=== PATIENT | female | born 1960 | race Hispanic/Latino ===

== ENCOUNTER 2017-08-29 10:51 | Emergency (ER) | payer OTHER ==
--- NOTE | 2017-08-29 12:42 | XRay Report ---
Chest 2 views: History: Cough and congestion. Findings: Normal cardiomediastinal silhouette the trachea is midline. No consolidation, pneumothorax or pleural effusion. Impression: No acute cardiopulmonary findings.
--- NOTE | 2017-08-29 13:05 | Emergency Department Report ---
- General Chief Complaint: Upper Respiratory Infection Stated Complaint: COUGH/BODY ACHE/VIDAL Source: patient Mode of arrival: Ambulatory Limitations: No Limitations - History of Present Illness Initial Comments: 57-year-old female comes in for cough with body aches for 2 days. She reports that the TheraFlu was not helping. She does have a past medical history of bronchitis and staph infections. Patient denies any nausea vomiting she does complain of rib pain with cough. As well as back pain with cough. MD Complaint: fever, cough, rhinorrhea, nasal congestion -: days(s) (2) Severity: moderate, severe Severity scale (0 -10): 10 Quality: sharp Consistency: intermittent (with the cough) Improves With: nothing Worsens With: other (cough) Associated Symptoms: rhinorrhea, cough, chest pain Treatments Prior to Arrival: "cold medicine" - Related Data Previous Rx's Medication Instructions Recorded Last Taken Type ALBUTEROL Inhaler [ProAir HFA 2 puff IH QID PRN 30 Days #1 08/29/17 Unknown Rx Inhaler] inhalation Benzonatate [Tessalon Perle] 100 mg PO TID #30 capsule 08/29/17 Unknown Rx Naproxen 500 mg PO BID #20 tablet 08/29/17 Unknown Rx Sulfamethoxazole/Trimethoprim 1 each PO BID 10 Days #20 tablet 08/29/17 Unknown Rx [Bactrim DS TAB] Allergies Allergy/AdvReac Type Severity Reaction Status Date / Time Penicillins Allergy Swelling Verified 08/29/17 11:05 vancomycin Allergy Rash Verified 08/29/17 11:05 ED Review of Systems ROS: Stated complaint: COUGH/BODY ACHE/VIDAL Other details as noted in HPI Constitutional: chills, fever, other (body aches) Eyes: denies: eye pain, eye discharge, vision change ENT: congestion (nasal congestion) Respiratory: cough Cardiovascular: chest pain (with cough) Endocrine: no symptoms reported Gastrointestinal: denies: abdominal pain, nausea, diarrhea Genitourinary: denies: urgency, dysuria, discharge Musculoskeletal: back pain (with cough) Skin: denies: rash, lesions Neurological: headache (with cough) Psychiatric: denies: anxiety, depression Hematological/Lymphatic: denies: easy bleeding, easy bruising ED Past Medical Hx - Past Medical History Previous Medical History?: Yes Additional medical history: Bronchitis, Staph infection - Surgical History Past Surgical History?: Yes Hx Cholecystectomy: Yes Hx Breast Surgery: Yes (Right breat biopsy) Additional Surgical History: Back surgery x 3, Tubaligation - Social History Smoking Status: Current Every Day Smoker Substance Use Type: Alcohol, Non Opiate Pain, Other - Medications Home Medications: Home Medications Medication Instructions Recorded Confirmed Last Taken Type ALBUTEROL Inhaler [ProAir HFA 2 puff IH QID PRN 30 Days #1 08/29/17 Unknown Rx Inhaler] inhalation Benzonatate [Tessalon Perle] 100 mg PO TID #30 capsule 08/29/17 Unknown Rx Naproxen 500 mg PO BID #20 tablet 08/29/17 Unknown Rx Sulfamethoxazole/Trimethoprim 1 each PO BID 10 Days #20 tablet 08/29/17 Unknown Rx [Bactrim DS TAB] ED Physical Exam - General Limitations: No Limitations General appearance: alert, in no apparent distress - Head Head exam: Present: atraumatic, normocephalic - Eye Eye exam: Present: normal appearance - ENT ENT exam: Present: mucous membranes moist - Neck Neck exam: Present: normal inspection, full ROM. Absent: tenderness, lymphadenopathy - Respiratory Respiratory exam: Present: normal lung sounds bilaterally, other (actively coughing). Absent: respiratory distress - Cardiovascular Cardiovascular Exam: Present: regular rate, normal rhythm. Absent: systolic murmur, diastolic murmur, rubs, gallop - GI/Abdominal GI/Abdominal exam: Present: soft, normal bowel sounds - Neurological Exam Neurological exam: Present: alert, oriented X3 - Psychiatric Psychiatric exam: Present: normal affect, normal mood - Skin Skin exam: Present: warm, dry, intact, normal color. Absent: rash ED Course Vital Signs 08/29/17 11:05 Temperature 99.5 F Pulse Rate 102 H Respiratory 20 Rate Blood Pressure 130/74 O2 Sat by Pulse 95 Oximetry ED Medical Decision Making - Radiology Data Radiology results: report reviewed, image reviewed Findings: Normal cardiomediastinal silhouette the trachea is midline. No consolidation, pneumothorax or pleural effusion. Impression: No acute cardiopulmonary findings. Transcribed By: PTP Dictated By: CESAR LANDRY MD Electronically Authenticated By: CESAR LANDRY MD Signed Date/Time: 08/29/17 1226 - Medical Decision Making Patient's been evaluated by this provider faster. Chest x-ray was normal myocardial pulmonary disease is appreciated. He was sent out an influenza. I would give patient a nebulizer treatment for the cough she is not wheezing. I will also give patient a [place] for pain in the chest and back from coughing. They've also help suppress the cough. Critical care attestation.: If time is entered above; I have spent that time in minutes in the direct care of this critically ill patient, excluding procedure time. ED Disposition Clinical Impression: Upper respiratory disease Disposition: DC-01 TO HOME OR SELFCARE Is pt being admited?: No Does the pt Need Aspirin: No Condition: Stable Instructions: Upper Respiratory Infection (ED) Additional Instructions: Complete antibiotics and medication as prescribed. Follow-up which her primary care provider within 3-5 days. Prescriptions: ALBUTEROL Inhaler [ProAir HFA Inhaler] 2 puff IH QID PRN 30 Days #1 inhalation PRN Reason: Shortness Of Breath Benzonatate [Tessalon Perle] 100 mg PO TID #30 capsule Naproxen 500 mg PO BID #20 tablet Sulfamethoxazole/Trimethoprim [Bactrim DS TAB] 1 each PO BID 10 Days #20 tablet Referrals: PRIMARY CARE, [Primary Care Provider] - 3-5 Days Forms: Work/School Release Form(ED)
[2017-08-29] MEDS ORDERED: NORCO 5/325 PO ONE (13:08)
[2017-08-29] MEDS ORDERED: PROVENTIL IH ONE (14:32)
[2017-08-29] MEDS ORDERED: TYLENOL PO ONE (15:16)
[2017-08-29] MEDS ORDERED: TYLENOL ONE (15:19)
[2017-08-29 15:21] VITALS: BP 108/60
== END 2017-08-29 15:22 | disposition home or self-care (01) ==
LOC: ED 10:51
DX: J06.9 Acute upper respiratory infection, unspecified (principal); F17.200 Nicotine dependence, unspecified, uncomplicated; Z88.0 Allergy status to penicillin; Z88.1 Allergy status to other antibiotic agents
CPT/HCPCS: 71020; 87400; 94640